=== PATIENT | female | born 1950 | race Caucasian/White ===

== ENCOUNTER 2017-12-29 11:49 | Emergency (ER) | payer MEDICARE ==
[2017-12-29 12:13] VITALS: BP 124/70
--- NOTE | 2017-12-29 13:07 | ED Physician Documentation ---
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 She does not carry a specific diagnosis of emphysema or COPD.) Review of Systems Constitutional: denies: Fever, Chills Nose: reports: Rhinorrhea / runny nose, Congestion Throat: denies: Sore throat Cardiac: denies: Chest pain / pressure, Palpitations Respiratory: reports: Dyspnea, Cough PD PAST MEDICAL HISTORY - Present Medications Home Medications: Ambulatory Orders Medication Instructions Recorded Confirmed Albuterol Sulf [Ventolin Hfa 1 - 2 puffs INH Q4HR PRN #1 inhaler 12/29/17 Inhaler] Amoxicillin 500 mg PO TID #30 capsule 12/29/17 Calcium Carbonate [Calcium] 12/29/17 Prednisone [Kendra] 8 mg PO 12/29/17 predniSONE [Deltasone] 20 mg PO [id number] #21 tab 12/29/17 - Allergies Allergies/Adverse Reactions: Allergies Allergy/AdvReac Type Severity Reaction Status Date / Time No Known Drug Allergies Allergy Verified 12/29/17 12:13 PD ED PE NORMAL - Vitals Vital signs reviewed: Yes - General General: Alert and oriented X 3, No acute distress - HEENT HEENT: Other (TMs are normal but the right one is retracted, she does have right maxillary sinus tenderness. The posterior oropharynx is normal.) - Neck Neck: Supple, no meningeal sign, No bony TTP - Cardiac Cardiac: RRR, No murmur - Respiratory Respiratory: No respiratory distress, Other (Wheezy and rhonchorous throughout without focal findings.) - Abdomen Abdomen: Non tender - Extremities Extremities: No edema, No calf tenderness / cord - Neuro Neuro: Alert and oriented X 3, Normal speech Results - Vitals Vitals: Vital Signs - 24 hr 12/29/17 12:12 Temperature 36.4 C L Heart Rate 91 Respiratory 20 Rate Blood Pressure 124/70 O2 Saturation 92 Oxygen O2 Source Room air PD MEDICAL DECISION MAKING - ED course ED course: This is a 67-year-old woman with history of temporal arteritis on prednisone who presents with findings of likely exacerbation of chronic bronchitis and right maxillary sinusitis. - Sepsis Event Vital Signs: Vital Signs - 24 hr 12/29/17 12:12 Temperature 36.4 C L Heart Rate 91 Respiratory 20 Rate Blood Pressure 124/70 O2 Saturation 92 Oxygen O2 Source Room air Departure - Departure Disposition: 01 Home, Self Care Clinical Impression: Bronchitis Condition: Good Record reviewed to determine appropriate education?: Yes Instructions: ED COPD Flare, ED Smoking Cessation Prescriptions: Albuterol Sulf [Ventolin Hfa Inhaler] 1 - 2 puffs INH Q4HR PRN #1 inhaler PRN Reason: Shortness Of Air/Wheezing Amoxicillin 500 mg PO TID #30 capsule predniSONE [Deltasone] 20 mg PO [id number] #21 tab Comments: Call your doctor to arrange a follow-up appointment, make the next available appointment. In the interim, return anytime if worse or if new symptoms develop.
== END 2017-12-29 13:09 | disposition home or self-care (01) ==
LOC: ED 11:49
DX: J40 Bronchitis, not specified as acute or chronic (principal); F17.200 Nicotine dependence, unspecified, uncomplicated; M31.6 Other giant cell arteritis; Z79.52 Long term (current) use of systemic steroids
CPT/HCPCS: 99283